=== PATIENT | female | born 1955 | race African-American/Black ===

== ENCOUNTER 2024-11-17 10:21 | Outpatient (CLI) | payer MEDICARE, SELFPAY ==
--- OUTSIDE RECORDS SUMMARY | 2024-11-17 11:33 | XMS_ITS | Continuity of Care Document ---
Author Organization [facility] Address [address] [place] [address] Phone Care Team Providers Care Food Tester Name Role Phone Vidal Eastman MD Unavailable Unavailable Allergies, Adverse Reactions, Alerts Substance Reaction Status Criticality No Known Drug Allergies Other Active No I nformation Medications Medication Instructions Dosage Effective Dates (start - stop) Status Comments LISINOPRIL-HCTZ 20-25MG TABS 1 QAM - Active ADULT LOW STRENGTH 81MG TABS 1 QD-daily - Active ATENOLOL 100MG TABS 0 DIRECTE - Active one half twice daily LISINOPRIL 20MG TABS 1 QD-daily - No Longer Active Advance Directives Directive Yes / No Effective Date File Name No Information Encounters Encounter Description Practice Location Reason(s) For Visit Diagnoses Date Provider Providers Copied on Encounter [facility], [address], [place], [place], [id number], tel:[phone] [facility] No Information Jaren Drake. [address] [facility] [address], [place], [place], [id number] . tel:[phone] [facility], [address], [place], [place], [address], tel:[phone] [facility] Jaren Drake. [address] , [address], [place], [place], [id number] . tel:[phone] Family History Family Member Type Diagnosis Age At Onset No Information Payers Payer name Insurance type Covered democrat ID Authoriza tion(s) No Information Social History Type Description Quantity Date Captured Comments Sex Female Smoking Status No Information Chief Complaint And Reason For Visit No Information Reason For Referral Reason For Referral No Information History Of Present Illness Encounter Date Complaint History Of Prese nt Illness No Information Functional Status Date Functional Assessmen t No Information Medications Administered Medication Instructions Dosage Effective Dates (start - stop) Status Comments LISINOPRIL 20MG TABS 1 QD-daily 2007 - No Longer Active Instructions Date Instruction Additional Infor mation No Information Assessments Type Assessment Date No Information Patient Care Teams Name Effective Dates (start - stop) Status Members No Information
--- NOTE | 2024-11-18 17:00 | WPDNEUROLOGY ---
Neurology EEG Report General Information Date of Study: 11/17/24 TEST Electroencephalogram DIAGNOSIS seizure disorder CONDITION OF RECORDING neurology lab EEG NUMBER 25-48 CLINICAL HISTORY patient had episode of unresponsiveness about 2 months ago and a similar spell 2 years prior to that EEG DESCRIPTION during wakefulness the background activity consists of mixed frequency low amplitude activity in posterior head region was identified alpha rhythm was not seen. Patient did not progress to stage 2 sleep. Hyperventilation not performed. Photic stimulation performed during which no significant abnormal background changes were seen. Superimposed beta activity was seen. IMPRESSION The background activity appears poorly organized with superimposed beta activity. Possibility underlying generalized encephalopathy and drug effect from benzodiazepines or similar drugs should be considered. No focal or paroxysmal epileptiform abnormalities were seen.
== END 2024-11-17 10:22 | disposition home or self-care (01) ==
PROVIDERS: PCP Family Medicine
DX: G40.909 Epilepsy, unspecified, not intractable, without status epilepticus (principal)
CPT/HCPCS: 95816

== ENCOUNTER 2025-01-27 12:55 | Emergency (ER) | payer MEDICARE, SELFPAY ==
--- NOTE | 2025-01-27 12:55 | ED.GENADULT ---
HPI - General Adult General Chief complaint: Allergic Reaction Stated complaint: ALLERGIC REACTION Time Seen by Provider: 01/27/25 13:06 Source: patient, RN notes reviewed and old records reviewed Mode of arrival: ambulatory Limitations: no limitations History of Present Illness HPI narrative: 69-year-old female presents to the [facility] with concerns of her lower lip swelling. Denies any other symptoms. Patient states that she has had new new foods or ointments lotions detergents. No new face creams. Denies any tongue swelling. denies any shortness of breath. States that she did taken Katy. Related Data Allergies Allergy/AdvReac Type Severity Reaction Status Date / Time house dust Allergy Sneezing Verified 01/27/25 13:16 Review of Systems Review of Systems: All systems reviewed & are unremarkable except as noted in HPI and below Constitutional: Constitutional: Reports no additional constitutional complaints ENT: Reports as per HPI Cardiovascular: Cardiovascular: Reports no additional cardiovascular complaints, Denies chest pain and Denies dyspnea Respiratory: Respiratory: Reports no additional respiratory complaints, Denies chest congestion, Denies cough and Denies dyspnea Musculoskeletal: Musculoskeletal: Reports no additional musculoskeletal complaints Integumentary/Breasts: Skin/Breast: Reports system reviewed and no additional complaints, except as docu PMFSH Past Medical History Medical History History of seizures Epilepsy Prediabetes Allergic rhinitis Hyperlipidemia Hypertension Surgical History Surgical History S/P breast biopsy 1996 History of throat surgery 1996 History of neck surgery Lump removal History of hysterectomy 1986 Family History Family History Mother Lung cancer Breast cancer Maternal Aunt Sibling Multiple myeloma Father Alcoholism Social History Social History Smoking status: Current every day smoker Alcohol intake: never Substance use: never Substance use type: does not use Do You Feel Safe in your Home?: Yes Lack of Transportation: No Lack of Food: Never True Current Housing: I Have Housing Concerned About Future Housing: No Difficulty Paying Gas/Electric Bills: No Difficulty Paying for Meds: No Currently Unemployed: No Education: High School Diploma/GED Living arrangements: with family Additional living arrangements comments: Lives with Daughter Occupation/Education: occupation Gender identity (if verbalized by the patient): Female Sexual Orientation (if Verbalized by the Patient): Straight or Heterosexual Spiritual care concerns: No Comments At the time of my signature, I reviewed and agree with the nursing past medical, surgical, social, and family history. There is no relevant family history pertinent to the patient complaint. Exam Const: General: cooperative, healthy appearing, comfortable, no acute distress, well developed, alert and well nourished Nutritional Appearance: well nourished Orientation/consciousness: patient oriented x3 Limitations: no limitations HENMT: Head: normal to inspection Ears: hearing grossly normal bilaterally, external ears normal, TM's normal bilaterally, EAC's normal, mastoids normal and no periauricular adenopathy Face and sinus: sinuses nontender and face symmetric Mouth: Yes Normal oral and palatal mucosa present, Yes tongue normal, Yes moist mucous membranes, No drooling and Yes lip abnormal bilateral lower swelling; without lacerations, without lesions, without rashes and without fissure Throat: posterior oropharynx normal, uvula midline and no uvular edema Eyes: General: appearance normal, both eyes and all related structures Alignment and Position: alignment normal Neck: Neck: normal visual inspection, full ROM, no lymphadenopathy and no meningeal signs Chest: Chest palpation & inspection: normal inspection of the chest Resp: Effort & Inspection: normal respiratory effort and able to speak in complete sentences Auscultation: clear to auscultation bilaterally, no crackles, no rales, no rhonchi and no wheezes Cardio: Rate: regular rate Skin: General skin exam: normal color and no rashes or lesions noted Neuro: General: patient oriented x3, gait normal, moves all extremities and no meningeal signs Cognition (Neuro): normal cognition Speech: normal speech Gait exam (Neuro): Normal gait present Extrem: General: normal to inspection, full ROM, capillary refill normal and normal gait Psych: Appearance: grossly normal and well kempt Mental Status: mental status grossly normal Speech and movement: Normal speech and movement present and Clear speech present Affect: normal affect Attitude: cooperative Course Course Level of Care: Express Care Visit Vital Signs Vital signs: Vital Signs Temperature 97.9 F 01/27/25 13:09 Pulse Rate 81 01/27/25 13:09 Respiratory Rate 16 01/27/25 13:09 Blood Pressure 125/85 01/27/25 13:09 Pulse Oximetry 100 01/27/25 13:09 Temperature 97.9 F 01/27/25 13:09 Pulse Rate 81 01/27/25 13:09 Respiratory Rate 16 01/27/25 13:09 Blood Pressure 125/85 01/27/25 13:09 Pulse Oximetry 100 01/27/25 13:09 Reviewed Medical Decision Making MDM Narrative Medical decision making narrative: Patient sitting comfortably in exam room. Nontoxic, vitals stable. Patient in no acute distress Patient presents only for lower lip swelling. No other signs or symptoms of a systemic reaction. Patient treated with prednisone, Benadryl and Pepcid in the [facility]. Discussed in great detail with family member in patient signs and symptoms to call 911 and proceed to the nearest emergency room. Discharge instructions reviewed with patient, as well as provided in writing per nursing staff. The instructions also include specific and strict return/GO TO THE ER as well as f/u information. All questions have been answered, and the patient deny any further questions with discharge and discharge plan. Some parts of this dictation were generated by voice recognition software and may contain typographical and/or grammatical inaccuracies. Differential Diagnosis Differential Diagnosis: Angioedema, allergic reaction Medical Records Medical records reviewed: Yes I reviewed the external patient's medical records. Vital Signs Vital Signs: Vital Signs Temperature 97.9 F 01/27/25 13:09 Pulse Rate 81 01/27/25 13:09 Respiratory Rate 16 01/27/25 13:09 Blood Pressure 125/85 01/27/25 13:09 Pulse Oximetry 100 01/27/25 13:09 Temperature 97.9 F 01/27/25 13:09 Pulse Rate 81 01/27/25 13:09 Respiratory Rate 16 01/27/25 13:09 Blood Pressure 125/85 01/27/25 13:09 Pulse Oximetry 100 01/27/25 13:09 Reviewed Lab Data Lab results reviewed: Yes I reviewed the patient's lab results. Labs: Reviewed Critical Care Time Critical Care Time Critical Care Time: No Discharge Plan Discharge Clinical Impression: Angioedema of lips Patient Disposition: Home Condition: Stable Instructions: Antibiotic Form, Angioedema (ED), General Allergic Reaction (ED) Additional Instructions: The most important part of your care is follow up with Primary care provider. Take Benadryl 25 mg every 8 hours for itching Take Zyrtec//Claritin/ Katy every day for 14 days Take Pepcid 20mg daily for 14 days Take the steroids starting tomorrow, your 1st dose was given in the [facility] Apply cool compresses every 2-3 hours for 15 minutes Go to the ER for new or worsening symptoms such as shortness of breath. Patient Language: Bermudian Prescriptions: New prednisone 20 mg tablet See Rx Instructions .Route .COMPLEX Qty: 9 0RF Rx Instructions: Take 40 mg daily for 3 days, 20 mg daily for 3 days No Action levetiracetam 500 mg tablet 500 mg PO Q12H Qty: 100 1RF amlodipine 10 mg tablet See Rx Instructions .ROUTE .COMPLEX Qty: 90 1RF Dose Instruction: Take 1 tablet by mouth once daily Rx Instructions: Take 1 tablet by mouth once daily atorvastatin 20 mg tablet See Rx Instructions .ROUTE .COMPLEX Qty: 90 1RF Dose Instruction: Take 1 tablet by mouth once daily Rx Instructions: Take 1 tablet by mouth once daily losartan-hydrochlorothiazide 100-25 mg tablet See Rx Instructions .ROUTE .COMPLEX Qty: 90 3RF Dose Instruction: Take 1 tablet by mouth once daily Rx Instructions: Take 1 tablet by mouth once daily Follow-up/Referrals: Smith Murphy MD [Primary Care Provider] - 2 Weeks ([facility] care follow up ) Time of Disposition: 13:31
[2025-01-27 13:09] VITALS: BP 125/85; PULSE 81; RESP 16; TEMP 36.6; O2SAT 100
[2025-01-27] MEDS: FAMOTIDINE 20 MG TABLET PO (13:24)
[2025-01-27] MEDS: diphenhydrAMINE HCl CAP 25 MG CAPSULE PO (13:24)
[2025-01-27] MEDS: predniSONE 20 MG TABLET 40 MG PO (13:24)
== END 2025-01-27 13:55 | disposition home or self-care (01) ==
PROVIDERS: Emergency Provider Nurse Practitioner; PCP Family Medicine
DX: T78.3XXA Angioneurotic edema, initial encounter (principal); G40.909 Epilepsy, unspecified, not intractable, without status epilepticus; I10 Essential (primary) hypertension; E78.5 Hyperlipidemia, unspecified; R73.03 Prediabetes; F17.200 Nicotine dependence, unspecified, uncomplicated
CPT/HCPCS: 99213; A9270; G0463; J7512